=== PATIENT | female | born 1945 | race Caucasian/White ===

== ENCOUNTER → 2024-12-02 | Outpatient (CLI) | payer MEDICARE, BC, SELFPAY ==
--- NOTE | 2024-12-02 10:41 | XR_ITS ---
Examination: Wrist, right 3 views Technique: Wrist AP, oblique, lateral 3 views Date and time of exam: November 24, 2024 1050 hours INDICATIONS: Patient fell yesterday with injury to the wrist, wrist pain. FINDINGS: Severe osteopenia Acute comminuted impacted fracture distal radial metaphysis without significant displacement IMPRESSION: Acute comminuted impacted fracture distal radial metaphysis
== END | disposition home or self-care (01) ==
LOC: CDIM 10:24
PROVIDERS: PCP Internal Medicine; Referring Provider Internal Medicine; Visit Provider Internal Medicine
DX: S52.91XA Unspecified fracture of right forearm, initial encounter for closed fracture (principal); W19.XXXA Unspecified fall, initial encounter
CPT/HCPCS: 73110